=== PATIENT | female | born 1955 | race Caucasian/White ===

== ENCOUNTER 2023-10-05 22:34 | Emergency (ER) | payer MEDICARE, BC, SELFPAY ==
[2023-10-05 22:40] VITALS: BP 195/96
[2023-10-05 22:59] LABS: % Basophils 0.8 % (0-2); % Eosinophils 6.4 % (0-6); % Immature Granulocytes 0.1 % (0-0.5); % Lymphocytes 36.2 % (20.5-51.1); % Monocytes 9.1 % (1.7-9.3); % Neutrophils 47.4 % (42.2-75.2); Absolute Basophils 0.1 10^3/uL (0-0.2); Absolute Eosinophils 0.5 10^3/uL (0-0.7); Absolute Lymphocytes 2.8 10^3/uL (1.2-3.4); Absolute Monocytes 0.7 10^3/uL (0.1-0.6); Absolute Neutrophils 3.6 10^3/uL (1.4-6.5); Hematocrit 46.2 % (37.0-47.0); Mean Corp Hgb Conc. 34.6 g/dL (33.0-37.0); Mean Corpuscular Hgb 31.9 pg (27.0-31.0); Mean Platelet Volume 8.8 fL (7.4-10.4); Nucleated Red Blood Cells % 0 %; Platelet Count 326 10^3/uL (130-400); Red Blood Cell Count 5.02 10^6/uL (4.20-5.40); Red Cell Dist. Width 12.2 % (11.5-14.5); White Blood Cell Count 7.6 10^3/uL (4.8-10.8)
[2023-10-05 23:12] LABS: ALT (SGPT) 38 U/L (0-35); AST (SGOT) 34 U/L (14-36); Albumin 4.7 g/dl (3.5-5.0); Alkaline Phosphatase 82 U/L (38-126); Blood Urea Nitrogen 15 mg/dl (7-17); Calcium 10.4 mg/dl (8.4-10.2); Carbon Dioxide 29 mmol/L (22-30); Chloride 103 mmol/L (98-107); Glucose 128 mg/dl (70-99); Potassium 4.2 mmol/L (3.5-5.1); Sodium 136 mmol/L (135-145); Total Bilirubin 1.1 mg/dl (0.2-1.3); Total Protein 7.1 g/dl (6.3-8.2); eGFR > 60.00
[2023-10-05 23:23] VITALS: BMI 32.5
[2023-10-05 23:24] LABS: Troponin I < 0.012 ng/ml
[2023-10-05 23:29] VITALS: BP 168/91
--- NOTE | 2023-10-05 23:40 | ED.GENMED ---
History of Present Illness
General
Chief Complaint: Chest Pain
Source: patient and family
Exam Limitations: none
Time Seen by Provider: 10/05/23 23:40
Travel History
Have you had any contact with someone who has COVID-19?: No
Do you have any symptoms of coronavirus? Fever > 100 degrees, chills, cough, shortness of breath, sore throat, loss of taste or smell, muscle aches, or headache?: No
History of Present Illness
History of Present Illness:
68-year-old female 5 minutes of chest pain rating up to her neck while a passenger in a vehicle this occurred about 2 hours ago. No shortness of breath no pleuritic pain no back pain. Feels fine at this time. Patient has had some shortness of
breath issue over the last months felt to be respiratory in nature. No leg pain leg swelling recent long trips or other complaints
Past History
Past History
ED Past Medical History: Hypercholesterolemia and Other (WPW)
ED Past Surgical History: Gynecological
Review of Systems
Review of Systems
All Other Systems: Not applicable
Constitutional: Denies fever
Respiratory: Denies cough or hemoptysis
ABD/GI: Reports no symptoms
Phy Exam
Physical Exam
Physical Exam:
GENERAL: Alert and oriented in no apparent distress
EYE: Orbits normal.
NECK: Supple
CARDIAC: Regular rate and rhythm without any obvious murmurs.
LUNGS: Clear breath sounds,normal
ABDOMEN: Soft, without focal tenderness or distention
NEUROLOGICAL: Alert and oriented , grossly non-focal
SKIN: Warm and dry, no rash or lesion, no discoloration, skin intact.
MUSCULOSKELETAL: No edema,no deformity.Good color
PSYCH: Normal and appropriate interaction.
Scores
Heart Score for Chest Pain Patients
STEMI patient?: No
History: Slightly or Non-Suspicious
ECG: Normal
Age: >/= 65 years
Risk Factors: 1 or 2 Risk Factors
Troponin: </= Normal Limit
Heart Score for Chest Pain Patients: 3
Heart Score Risk: 2.5% MACE over next 6 weeks
Course
Orders/Labs/Results
Orders:
Orders
10/05/23 22:36
Electrocardiogram (*1) Urgent
Reason for Study: Chest Pain
EKG- Treatment ONCE
10/05/23 22:53
Complete Blood Count/With Diff Urgent
Comprehensive Metabolic Panel Urgent
Troponin I Urgent
10/05/23 23:56
IV Insert/Care/Rem.- Treatment PRN
10/06/23 00:00
CT Chest Pe Study Urgent
Reason For Exam: Chest pain/recent short of breath
10/06/23 01:37
Electrocardiogram (*1) Stat
Reason for Study: Other
Other Reason for Exam: chest pain
EKG- Treatment ONCE
10/06/23 02:03
Troponin I Urgent
Abnormal Lab Results
10/05/23
22:53
MCH 31.9 H pg
(27.0-31.0)
Absolute Monos (auto) 0.7 H 10^3/uL
(0.1-0.6)
Eosinophils % 6.4 H %
(0-6)
Glucose 128 H mg/dl
(70-99)
Calcium 10.4 H mg/dl
(8.4-10.2)
ALT 38 H U/L
(0-35)
10/05/23 22:53
10/05/23 22:53
Vital Signs
Initial and Last Documented VS:
Initial Vital Signs
Temp Pulse Resp BP Pulse Ox
98.2 F 80 16 195/96 100
10/05/23 22:40 10/05/23 22:40 10/05/23 22:40 10/05/23 22:40 10/05/23 22:40
Last Documented Vital Signs
Temp Pulse Resp BP Pulse Ox
98.2 F 76 20 150/84 93
10/05/23 22:40 10/06/23 03:00 10/06/23 03:00 10/06/23 03:00 10/06/23 03:00
MDM/Problems Addressed
Differential Diagnosis Includes:
Patient with very brief nonexertional chest pain. Some cardiac risk factors. With sudden symptoms right atrial enlargement on EKG and shortness of breath issues over the last few months we will do a PE study. Repeat troponin and EKG. If all
stable patient is stable for discharge to follow-up
*Radiology
Radiology exam reviewed: radiology read reviewed (Negative CT angiography. Report given to patient)
*Pulse Oximetry
Patient hypoxic: no
*EKG
Interpreted by ED Provider?: Yes
Heart Rate: 71
Rate: normal
Rhythm: sinus and sinus arrhythmia
[place]: normal axis
Interval: normal interval
QRS Pattern: normal QRS
Ischemia: other (Right atrial enlargement)
*Critical Care Note
Total Time (30-74mins, 75-104mins- exclusive of procedures): Not Applicable
Update Note
Update Note:
Patient is remained stable. Repeat CT normal sinus rhythm at 86 no acute changes. Await CT angio report and troponin. Medically stable for discharge if these are all negative
ED Attending Note
-
Portions of this chart may have been created with voice recognition software.� Occasional wrong word or��sound alike� substitutions may have occurred due to the inherent limitations of voice recognition software.
Discharge Plan
Departure
Patient Disposition: Home (Routine Discharge)
Date of Disposition: 10/06/23
Time of Disposition: 02:52
Patient with high blood pressure during this ER visit?: Yes
Discharge Problem:
Transient anterior chest pain
Instructions: Chest Pain, Adult ED, BLOOD PRESSURE
Referrals:
UNKNOWN - PT DOES,NOT KNOW [Family Provider] -
Activity Restrictions/Additional Instructions:
Call your primary physician first thing Sunday morning for close follow-up
To consider outpatient stress test
Return immediately with any recurring chest pain
Interventions
Interventions:
*Risk Screen - Suicide Last Done: 10/05/23 22:40
*General Assessment Last Done: 10/05/23 22:40
*Neglect/Abuse Screening Last Done: 10/05/23 22:40
ED- Fall Risk Assessment Last Done: 10/05/23 23:23
*Nursing Disposition Last Done: 10/06/23 03:10
ED- Cardiac Assessment Last Done: 10/05/23 23:23
Discharge Date and Time
Discharge Date/Time: 10/06/23 03:14
Print Language: WELSH
[2023-10-06] VITALS: BP 167/87
[2023-10-06 01:00] VITALS: BP 141/82
[2023-10-06 02:36] LABS: Troponin I < 0.012 ng/ml
[2023-10-06 02:55] VITALS: BP 174/91
[2023-10-06 03:00] VITALS: BP 150/84
== END 2023-10-06 03:14 | disposition home or self-care (01) ==
LOC: EMR 22:34
PROVIDERS: EMERGENCY PHYSICIAN Emergency Medicine
DX: R07.89 Other chest pain (principal); R03.0 Elevated blood-pressure reading, without diagnosis of hypertension; E78.00 Pure hypercholesterolemia, unspecified; I45.6 Pre-excitation syndrome; Z88.0 Allergy status to penicillin; Z88.8 Allergy status to other drugs, medicaments and biological substances
CPT/HCPCS: 99285; 71275; 80053; 84484; 85025; 93005; Q9967